=== PATIENT | male | born 1985 | race Caucasian/White ===

== ENCOUNTER 2017-06-24 20:19 | Emergency (ER) | payer BC ==
[~2017-06-24] VITALS: Ht 165.1 cm; Wt 61.2 kg
[2017-06-24] MEDS ORDERED: IV NORMAL SALINE 1,000ML 1,000 ML IV ONE (20:45)
[2017-06-24] MEDS ORDERED: ONDANSETRON PF 4 MG/2 ML VIAL. IV ONE (21:00)
[2017-06-24 22:12] LABS: HEMOGLOBIN ISTAT 14.3 gm/dL; POTASSIUM ISTAT 3.7 mmol/L (3.5-5.0)
[2017-06-24 22:30] VITALS: BP 114/50
[2017-06-24] MEDS ORDERED: ONDA4TAB11 PO (22:47)
--- NOTE | 2017-06-24 22:47 | PHYS DOC ---
Past History Past Medical History: Asthma Past Surgical History: Tonsillectomy Alcohol Use: Occasionally Drug Use: None Adult General Chief Complaint Chief Complaint: ALCOHOL INTOXICATION HPI HPI Patient is a 32-year-old male assessed with complaints of dry heaving and malaise after taking alcohol last night. Patient denies any diarrhea or bloody vomit. Patient was in his usual state of health until last night. Patient states she hasn't been able to drink liquids today secondary to nausea. Patient denies any pain. No fevers, no chills, no rashes, known Sick contacts Review of Systems Review of Systems Constitutional: Denies fever or chills [] HENT: Denies nasal congestion or sore throat [] Respiratory: Denies cough or shortness of breath [] Cardiovascular: No chest pain GI: As per history of present illness[] aravind [] Musculoskeletal: Denies back pain or joint pain [] Integument: Denies rash or skin lesions [] Neurologic: Denies headache, focal weakness or sensory changes [] All other systems were reviewed and found to be within normal limits, except as documented in this note. Current Medications Current Medications Current Medications Medications (Trade) Dose Ordered Sig/Aura Start Time Stop Time Status Last Admin Dose Admin Ondansetron HCl (Zofran) 4 mg 1X ONCE 06/24/17 21:00 06/24/17 21:01 DC 06/24/17 21:03 4 MG Sodium Chloride 1,000 ml @ 1,000 mls/hr 1X ONCE 06/24/17 20:45 06/24/17 21:44 DC 06/24/17 21:04 1,000 MLS/HR Allergies Allergies Allergies Coded Allergies Type Severity Reaction Last Updated Verified Penicillins Allergy Unknown 07/31/16 Yes Physical Exam Physical Exam Constitutional: Well developed, well nourished, mild distress, non-toxic appearance. [] HENT: Normocephalic, atraumatic, bilateral external ears normal, oropharynx dry , no oral exudates, nose normal. [] Eyes: EOMI, conjunctiva normal, no discharge. [] Neck: Normal range of motion, trachea midline, no stridor. [] Cardiovascular:Heart rate regular rhythm, no murmur, equal pulses, normal perfusion Lungs & Thorax: Bilateral breath sounds clear to auscultation, no tachypnea, Abdomen: Bowel sounds normal, soft, no tenderness, no masses, no pulsatile masses. No guarding, no rebound Skin: Warm, dry, no erythema, no rash. [] Back: No tenderness, no CVA tenderness. [] Extremities: No tenderness,, ROM intact, no edema. [] Neurologic: Alert and oriented X 3, normal motor function, , no focal deficits noted. [] Psychologic: Affect normal, judgement normal, mood normal. [] Current Patient Data Lab Results Laboratory Tests Test 06/24/17 22:02 POC Hemoglobin 14.3 gm/dL POC Hematocrit 42 % POC Sodium 144 mmol/L (135-145) POC Potassium 3.7 mmol/L (3.5-5.0) POC Chloride 107 mmol/L (98-110) POC Total CO2 25 mmol/L (23-32) Anion Gap 17 mmol/L (6-14) H POC Blood Urea Nitrogen 17 mg/dL (8-26) POC Creatinine 1.1 mg/dL (0.5-1.4) Glucose Level 109 mg/dL (60-99) H POC Ionized Calcium (Isabel) 1.13 mmol/L (1.13-1.32) EKG EKG [] Radiology/Procedures Radiology/Procedures [] Course & Med Decision Making Course & Med Decision Making Pertinent Labs and Imaging studies reviewed. (See chart for details) Unremarkable i-STAT [id number] patient resting comfortably, no vomiting in the ED, patient feels improved after fluids. Patient requests discharge home [] Dragon Disclaimer Dragon Disclaimer This electronic medical record was generated, in whole or in part, using a voice recognition dictation system. Departure Departure: Impression: Primary Impression: Nausea & vomiting Additional Impression: Dehydration Disposition: 01 HOME, SELF-CARE Condition: STABLE Referrals: PCP,NO (PCP) Patient Instructions: Dehydration, Adult, Nausea and Vomiting, [id number] Additional Instructions: Please follow with your PCP or at one of the clinics in the list provided to you in 3-5 days for recheck and reevaluation. Scripts Ondansetron Hcl (ONDANSETRON HCL) 4 Mg Tablet 1 TAB PO PRN Q6HRS, #10 TAB 1 Refill Prov: Noah JUDD MD 06/24/17 Problem Qualifiers Noah JUDD MD Jun 24, 2017 22:47
== END 2017-06-24 23:00 | disposition home or self-care (01) ==
LOC: ER 20:19
DX: E86.0 Dehydration (principal); R11.2 Nausea with vomiting, unspecified; J45.909 Unspecified asthma, uncomplicated; Z88.0 Allergy status to penicillin
CPT/HCPCS: 36415; 80047; 85014; 85018; 96374; 99284; J2405; J7030